=== PATIENT | female | born 1970 | race Caucasian/White ===

== ENCOUNTER 2025-06-14 03:44 | Emergency (ER) | payer BC ==
[2025-06-14] MEDS ORDERED: Acetaminophen 500 MG TAB ONE (04:09)
== END 2025-06-14 04:50 | disposition home or self-care (01) ==
LOC: MADERS 03:44
DX: M62.838 Other muscle spasm (principal); E78.5 Hyperlipidemia, unspecified; Z79.899 Other long term (current) drug therapy
CPT/HCPCS: 99283